=== PATIENT | male | born 1995 | race Caucasian/White ===

== ENCOUNTER 2018-12-13 03:16 | Emergency (ER) | payer OTHER ==
[~2018-12-13] VITALS: Ht 172.7 cm; Wt 68.2 kg
[2018-12-13 03:24] VITALS: Ht 172.7 cm; Wt 68.2 kg
[2018-12-13] MEDS ORDERED: FLUMAZENIL 0.5 MG INJ IV ONE (04:00)
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
[2018-12-13] MEDS ORDERED: HALOPERIDOL 5 MG INJ IM ONE (05:30)
[2018-12-13 09:26] VITALS: BP 129/78; PULSE 89; RESP 20
== END 2018-12-13 09:30 ==
LOC: EDBD 03:16 → E/R 03:16
DX: S00.411A Abrasion of right ear, initial encounter (principal); S80.12XA Contusion of left lower leg, initial encounter; S80.11XA Contusion of right lower leg, initial encounter; R40.2122 Coma scale, eyes open, to pain, at arrival to emergency department; R40.2342 Coma scale, best motor response, flexion withdrawal, at arrival to emergency department; R40.2212 Coma scale, best verbal response, none, at arrival to emergency department; X58.XXXA Exposure to other specified factors, initial encounter; Y92.9 Unspecified place or not applicable; Z02.89 Encounter for other administrative examinations
CPT/HCPCS: 70450; 71045; 72125; 73590; 80307; 96372; 96374; 99285; J1630